=== PATIENT | female | born 1980 | race Two or more races ===

== ENCOUNTER 2017-02-18 12:53 | Emergency (ER) | payer MEDICAID ==
[~2017-02-18] VITALS: Ht 157.5 cm; Wt 61.2 kg
--- NOTE | 2017-02-18 13:21 | NUR ---
MD is at bedside evaluating the patient.
[2017-02-18] MEDS ORDERED: IV NORMAL SALINE 1000 ML BAG IV ONE (13:30)
[2017-02-18] MEDS ORDERED: KETOROLAC TROMETHAMINE 30 MG INJ ONE (13:36)
[2017-02-18] MEDS ORDERED: KETOROLAC TROMETHAMINE 30 MG INJ IVP ONE (13:45)
[2017-02-18 13:49] LABS: *BILIRUBIN,URIN NEGATIVE (NEGATIVE); *BLOOD, URINE NEGATIVE (NEGATIVE); *CLARITY,URINE CLEAR (CLEAR); *COLOR,URINE LIGHT YELLOW (YELLOW); *KETONES,URINE NEGATIVE (NEGATIVE); *PROTEIN,URINE NEGATIVE (NEGATIVE); *UROBILINOGEN,URINE 0.2 E.U./dl (NORMAL); LEUKOCYTE ESTERASE ,URINE NEGATIVE (NEGATIVE); NITRITE, URINE NEGATIVE (NEGATIVE); PH,URINE 6.5 (5.0-8.0); UGLUCOSE NEGATIVE (NEGATIVE)
[2017-02-18 13:51] LABS: *URINE HCG, QUAL NEGATIVE (NEGATIVE)
[2017-02-18 13:54] LABS: BASOPHILS % (AUTO) 0.7 % (0.0-2.0); EOSINOPHILS # (AUTO) 0.1 K/uL (0.0-0.7); EOSINOPHILS % (AUTO) 1.1 % (0.0-7.0); HEMATOCRIT 35.3 % (37.0-47.0); HEMOGLOBIN 11.2 g/dL (12.0-16.0); LYMPHOCYTES # (AUTO) 0.3 K/uL (0.8-4.8); LYMPHOCYTES % (AUTO) 5.6 % (20.5-51.5); MEAN CORPUSCULAR HEMOGLOBIN 19.4 uug (27.0-31.0); MEAN CORPUSCULAR HGB CONC 32 g/dL (32.0-37.0); MEAN CORPUSCULAR VOLUME 61.2 fL (81.0-99.0); MONOCYTES # (AUTO) 0.6 K/uL (0.1-1.30); MONOCYTES % (AUTO) 10.4 % (0.0-11.0); NEUTROPHILS # (AUTO) 4.8 K/uL (1.8-8.9); NEUTROPHILS % (AUTO) 82.2 % (38.5-71.5); PLATELET COUNT (AUTO) 186 K/uL (150-450); RED BLOOD CELL COUNT(AUTO) 5.76 MIL/uL (4.20-5.40); RED CELL DISTRIBUTION WIDTH 15.5 % (11.5-14.5); WHITE BLOOD COUNT (AUTO) 5.9 K/uL (4.0-11.2)
[2017-02-18 14:04] LABS: BACTERIA,URINE NONE SEEN /HPF (NONE SEEN); RBC,URINE 0-3 /HPF (0-3); SQUAMOUS EPITHELIAL CELL,UR FEW /HPF (NONE SEEN); WBC,URINE 0-3 /HPF (0-3)
[2017-02-18 14:07] LABS: ALBUMIN 3.8 g/dL (3.4-5.0); BILIRUBIN,DIRECT 0.1 mg/dL (0.0-0.2); BILIRUBIN,TOTAL 0.4 mg/dL (0.2-1.0); CALCIUM 8.2 mg/dL (8.5-10.1); CREATININE 0.8 mg/dL (0.6-1.3); POTASSIUM 3.8 mmol/L (3.5-5.1); TOTAL PROTEIN, SERUM 7.3 g/dL (6.4-8.2)
[2017-02-18 14:09] LABS: TROPONIN I < 0.017 ng/mL (0.00-0.056)
[2017-02-18 14:12] LABS: LACTIC ACID 0.9 mmol/L (0.4-2.0)
[2017-02-18 14:13] LABS: EOSINOPHILS % (MANUAL) 1 % (0-8); LYMPHOCYTES % (MANUAL) 5 % (20-40); MONOCYTES % (MANUAL) 9 % (2-10); NEUTROPHILS % (MANUAL) 85 % (42-75); PLATELET ESTIMATE ADEQUATE
--- NOTE | 2017-02-18 14:27 | NUR ---
Patient is resting comfortably in bed with eyes closed. Patient says that she will feels much better.
--- NOTE | 2017-02-18 14:57 | NUR ---
IV removed. Catheter intact and site benign. Pressure and 4x4 gauze applied to site. No bleeding noted. Patient discharged to home in stable conditon. Written and verbal after care instructions given to patient and family. Patient's family verbalizes understanding of instructions.
== END 2017-02-18 14:58 | disposition home or self-care (01) ==
LOC: ER 12:56
DX: E86.0 Dehydration (principal); J11.1 Influenza due to unidentified influenza virus with other respiratory manifestations
CPT/HCPCS: 36415; 70030-TC; 83605; 84703; 85025; 85730; 87040; 87086; 87400; A4663; J1885; J7030

== ENCOUNTER 2017-08-17 10:31 | Emergency (ER) | payer MEDICAID ==
[~2017-08-17] VITALS: Ht 160 cm; Wt 59.9 kg
--- NOTE | 2017-08-17 10:42 | NUR ---
Patient is resting comfortably on bed while drinking coffee, NAD, respiration;easy, no coughing heard at this time.
--- NOTE | 2017-08-17 10:57 | NUR ---
Patient discharged to home in stable conditon. Written and verbal after care instructions given to patient. Patient verbalizes understanding of instructions. Patient left ER with brisk steady gait.
== END 2017-08-17 10:58 | disposition home or self-care (01) ==
LOC: ER 10:31
DX: J11.1 Influenza due to unidentified influenza virus with other respiratory manifestations (principal)
CPT/HCPCS: 99283; A4663

== ENCOUNTER 2017-12-16 20:38 | Emergency (ER) | payer MEDICAID ==
[~2017-12-16] VITALS: Ht 165.1 cm; Wt 59.0 kg
[2017-12-16] MEDS ORDERED: HYDROMORPHONE 1 MG/1 ML DISP.SYRIN IM ONE (23:00)
[2017-12-16] MEDS ORDERED: PROMETHAZINE HCL 25 MG/1 ML VIAL IM ONE (23:00)
--- NOTE | 2017-12-16 23:11 | NUR ---
Gave pt RX and d/c instructions, verbalized understanding. driving.
[2017-12-16] MEDS ORDERED: HYDROMORPHONE 2 MG/1 ML DISP.SYRIN ONE (23:16)
[2017-12-16] MEDS ORDERED: PROMETHAZINE HCL 25 MG/1 ML VIAL ONE (23:17)
== END 2017-12-16 23:12 | disposition home or self-care (01) ==
LOC: ER 20:40
DX: Z88.6 Allergy status to analgesic agent (principal)
CPT/HCPCS: A4663; J1170; J2550